=== PATIENT | female | born 1950 | race Caucasian/White ===

== ENCOUNTER 2016-07-30 21:09 | Emergency (ER) | payer OTHER ==
[2016-07-30] MEDS ORDERED: CEPHALEXIN 500 MG CAP PO ONE (22:21)
--- NOTE | 2016-07-30 22:31 | EDPHY ---
H & P Stated Complaint: perineal/suprapubic doris reddened and itching, sgy 07/19/16 HPI/ROS: Chief complaint: Possible surgical incisions site infection History of present illness: This is a 65-year-old female who presents to the emergency department concerned she has a possible surgical incisions site infection. Patient underwent extensive abdominal surgery 2 weeks ago for metastatic cancer. She has been doing well since the surgery. However over the last few days she has noticed increasing discomfort and redness around the lower surgical incisions site. Today she noted that her temperature increased to 99 F. She did contact her surgeon who recommended that she come to the ER for temperature reached 101 F. However she is concerned that she may begin infection presents. Review of systems: A 10 point review of systems was obtained and other than described above was negative - Personal History Current Tetanus/Diphtheria Vaccine: Unsure Current Tetanus Diphtheria and Acellular Pertussis (TDAP): Unsure - Medical/Surgical History Hx Asthma: No Hx Chronic Respiratory Disease: No Hx Diabetes: No Hx Cardiac Disease: No Hx Renal Disease: No Hx Cirrhosis: No Hx Alcoholism: No Hx HIV/AIDS: No Hx Splenectomy or Spleen Trauma: No Other PMH: COLON CANCER IN REMISSION 2002; scoliosis; major abdo sgy [ hysterectomy, oophorectomy, appy, diaphragm debulking, liver debulking, bowel resection & cholecystectomy] July 2016 - Social History Smoking Status: Never smoked - Physical Exam Exam: General Appearance: Alert and no distress. Eyes: Pupils equal and round no injection. Respiratory: Chest is non tender, lungs are clear to auscultation. Cardiac: regular rate and rhythm Gastrointestinal: Abdomen is soft and non tender, no masses, bowel sounds normal. Musculoskeletal: Neck is supple and non tender. Extremities have full range of motion and are non tender. Skin: Vertical midline incision to the abdomen. Doris in place. There is surrounding erythema to the lower incision site. Mild associated warmth and tenderness to palpation. No induration or fluctuance. No pustular discharge from the wound site. Constitutional: Initial Vital Signs Temperature (C) 37 C 07/30/16 21:10 Heart Rate 73 07/30/16 21:10 Respiratory Rate 16 07/30/16 21:10 Blood Pressure 130/87 H 07/30/16 21:10 O2 Sat (%) 93 07/30/16 21:10 O2 Delivery Mode Room Air Allergies/Adverse Reactions: Penicillins Allergy (Verified 05/06/09 20:08) Home Medications: Medication Instructions Recorded Cephalexin [Keflex] 500 mg PO QID 7 Days 07/30/16 GABAPENTIN 07/30/16 Tylenol 07/30/16 Medical Decision Making ED Course/Re-evaluation: Patient discussed with my secondary supervising physician Dr. Mitchell Briones. Patient presents to the emergency department concerned she is getting a surgical incision site infection. There is tenderness, erythema and warmth around the lower incision site. I have consulted with her surgeon, Dr. Titus. He recommends placing her on Keflex. He is comfortable with her following up on an outpatient basis. Patient does report a penicillin allergy but states she has had amoxicillin without problem before. She is therefore started on Keflex. She is given the 1st dose in the emergency room and tolerates it well. Home care is discussed. Return precautions are given. Patient voiced understanding and agreement with plan. Differential Diagnosis: Included but not limited to contact dermatitis, cellulitis, abscess - Data Points Medications Given: Discontinued Medications Cephalexin HCl (Keflex) 500 mg PO EDNOW ONE PRN Reason: Protocol Stop: 07/30/16 22:22 Last Admin: 07/30/16 22:27 Dose: 500 mg Departure - Departure Disposition: Home, Routine, Self-Care Clinical Impression: Wound infection Condition: Good Instructions: Wound Infection (ED) Additional Instructions: Follow-up with your surgeon next week for recheck If symptoms worsen or new symptoms develop return to the emergency room for recheck Referrals: Twin Pereira MD [Primary Care Provider] - As per Instructions Prescriptions: Cephalexin [Keflex] 500 mg PO QID 7 Days
[2016-07-30 23:08] VITALS: BP 127/71; PULSE 71; RESP 18; TEMP 98.4; O2SAT 97
== END 2016-07-30 23:07 | disposition home or self-care (01) ==
DX: T81.4XXA Infection following a procedure, initial encounter (principal); Z85.038 Personal history of other malignant neoplasm of large intestine; Z90.710 Acquired absence of both cervix and uterus; Y82.9 Unspecified medical devices associated with adverse incidents

== ENCOUNTER 2017-01-07 12:54 | Observation (INO) | payer OTHER, MEDICARE ==
[2017-01-07] MEDS ORDERED: ONDANSETRON 4 MG/2 ML VIAL IVP ONE (13:28)
[2017-01-07] MEDS ORDERED: ONDANSETRON 4 MG/2 ML VIAL ONE (13:34)
[2017-01-07 13:40] LABS: % IMMATURE GRANULYOCYTES 0.5 % (0.0-1.1); ABSOLUTE IMMATURE GRANULOCYTES 0.07 10^3/uL (0.00-0.10); ADD DIFF? NO; ADD MORPH? NO; ADD SCAN? NO; ATYPICAL LYMPHOCYTE FLAG 0 (0-99); FRAGMENT RBC FLAG 20 (0-99); HEMATOCRIT 34.3 % (38.0-47.0); HEMOGLOBIN 11.2 g/dL (12.6-16.3); LEFT SHIFT FLG 0 (0-99); LIPEMIA HEMOLYSIS FLAG 80 (0-99); MEAN CELL HEMOGLOBIN 26.2 pg (27.9-34.1); MEAN CELL HEMOGLOBIN CONCENTR. 32.7 g/dL (32.4-36.7); MEAN CELL VOLUME 80.3 fL (81.5-99.8); MEAN PLATELET VOLUME 10.5 fL (8.7-11.7); PLATELET CLUMPS FLAG 0 (0-99); PLATELET COUNT 348 10^3/uL (150-400); RED BLOOD CELL COUNT 4.27 10^6/uL (4.18-5.33)
[2017-01-07] MEDS ORDERED: IOPAMIDOL (ISOVUE-300) 100 ML BTL ONE (13:43)
[2017-01-07] MEDS ORDERED: POTASSIUM Cl (KCl) 100 ML IV ONE (14:16)
[2017-01-07] MEDS ORDERED: NS 1,000 ML IV ONE (14:29)
--- NOTE | 2017-01-07 14:29 | EDPHY ---
H & P Stated Complaint: r sided abd pain/nausea/diarrhea Source: Patient, RN/MD, Old records Exam Limitations: No limitations - Personal History Current Tetanus/Diphtheria Vaccine: Unsure - Medical/Surgical History Hx Asthma: No Hx Chronic Respiratory Disease: No Hx Diabetes: No Hx Cardiac Disease: No Hx Renal Disease: No Hx Cirrhosis: No Hx Alcoholism: No Hx HIV/AIDS: No Hx Splenectomy or Spleen Trauma: No Other PMH: COLON CANCER IN REMISSION 2002; scoliosis; major abdo sgy [ hysterectomy, oophorectomy, appy, diaphragm debulking, liver debulking, bowel resection & cholecystectomy] July 2016 - Social History Smoking Status: Never smoked Time Seen by Provider: 01/07/17 13:13 HPI/ROS: CHIEF COMPLAINT: abdominal pain HISTORY OF PRESENT ILLNESS: 66-year-old female presents emergency department sent by her primary care doctor's office for right lower quadrant abdominal pain and body aches that started this morning. Patient has a history of carcinoid tumor s/p surgery. She gets weekly injections of lanreotide, no history of chemotherapy or radiation. Pt had a major abdominal debulking surgery in July. Pt reports mild nausea, no vomiting. The patient reports two bowel movements this morning that were diarrhea which is normal for her, no blood. She reports her pain is in her right lower quadrant, sharp in nature with intermittent cramps that radiates to her right flank. She denies shortness of breath, no urinary frequency, urgency, dysuria or hematuria. Patient reports she had a normal day yesterday. She reports she was exposed to a gastroenteritis several days ago. REVIEW OF SYSTEMS: A comprehensive 10 point review of systems is otherwise negative aside from elements mentioned in the history of present illness. (Kaylin Solorzano) Constitutional: Initial Vital Signs Temperature (C) 36.9 C 01/07/17 13:06 Heart Rate 76 01/07/17 13:06 Respiratory Rate 18 01/07/17 13:06 Blood Pressure 118/77 01/07/17 13:06 O2 Sat (%) 98 01/07/17 13:06 O2 Delivery Mode Room Air O2 (L/minute) 2 Allergies/Adverse Reactions: Penicillins Allergy (Verified 01/07/17 13:05) Home Medications: Medication Instructions Recorded GABAPENTIN 07/30/16 Ondansetron Odt [Zofran Odt] 4 mg PO Q6-8PRN PRN #8 tab 01/07/17 Pancreatic Enzymes 01/07/17 Medical Decision Making - Diagnostics Imaging: I viewed and interpreted images myself - Diagnostics Imaging Results: Imaging Impressions Abdomen CT 01/07/17 13:41 Impression: 1. Enlarging right cardiophrenic lymph node/implants, suggesting worsening carcinomatosis. 2. Resolution/surgical resection of previously noted mesenteric implants. 3. New dominant hepatic hypodensity with additional indeterminate hypodensities , which could be related to treated metastases, however, are indeterminate, with several small lesions without a definite correlate on the previous study. 4. Mild intra- and extrahepatic biliary dilatation. 5. Additional findings as above. Findings discussed with Kaylin Solorzano NP, on 01/07/2017 at 1446 hours. ED Course/Re-evaluation: IV established, labs and istat obtained, CT abdomen pelvis with IV contrast ordered. Pt is given 4mg of zofran and 2 mg of morphine IV. Normal vital signs. 3pm-Pt reports her pain and nausea are much improved. She is nervous to be discharged home due to the amount of pain she was in. Plan to watch patient for 1-2 hours to see how she is feeling then dc home. 1600-Pt continues feeling better. She reports she feels hungry. She is requesting admission to the hospital over night as she is afraid to go home and be by herself if her pain returns. Dr. Siegel paged for admission. 1605-I spoke with Hiro PAYNE, he will admit the patient. (Kaylin Solorzano) - Data Points Laboratory Results: Laboratory Results 01/07/17 13:20 01/07/17 01/07/17 01/07/17 14:20 13:22 13:20 WBC RBC Hgb POC Hgb 13.3 gm/dL gm/dL (12.6-16.3) Hct POC Hct 39 % % (38-47) MCV MCH MCHC RDW Plt Count MPV Neut % (Auto) Lymph % (Auto) [place] % (Auto) Eos % (Auto) Baso % (Auto) Nucleat RBC Rel Count Absolute Neuts (auto) Absolute Lymphs (auto) Absolute Monos (auto) Absolute Eos (auto) Absolute Basos (auto) Absolute Nucleated RBC Immature Gran % Immature Gran # POC Sodium 142 mEq/L mEq/L (134-144) POC Potassium 3.2 mEq/L L mEq/L (3.3-5.0) POC Chloride 103 mEq/L mEq/L (97-110) POC BUN 13 mg/dL mg/dL (7-23) POC Creatinine 0.7 mg/dL mg/dL (0.6-1.0) POC Glucose 118 mg/dL H mg/dL (70-100) Total Bilirubin 1.5 mg/dL H mg/dL (0.1-1.4) Conjugated Bilirubin 0.4 mg/dL mg/dL (0.0-0.5) Unconjugated Bilirubin 1.1 mg/dL mg/dL (0.0-1.1) AST 25 IU/L IU/L (14-46) ALT 45 IU/L IU/L (9-52) Alkaline Phosphatase 93 IU/L IU/L (38-126) Total Protein 7.1 g/dL g/dL (6.3-8.2) Albumin 4.1 g/dL g/dL (3.5-5.0) Lipase 95 IU/L IU/L (23-300) Urine Color YELLOW Urine Appearance HAZY Urine pH 5.0 (5.0-7.5) Ur Specific [place] 1.024 (1.002-1.030) Urine Protein NEGATIVE (NEGATIVE) Urine Ketones NEGATIVE (NEGATIVE) Urine Blood 1+ H (NEGATIVE) Urine Nitrate NEGATIVE (NEGATIVE) Urine Bilirubin NEGATIVE (NEGATIVE) Urine Urobilinogen NEGATIVE EU EU (0.2-1.0) Ur Leukocyte Esterase NEGATIVE (NEGATIVE) Urine RBC 1-3 /hpf /hpf (0-3) Urine WBC 1-3 /hpf /hpf (0-3) Ur Epithelial Cells TRACE /lpf /lpf (NONE-1+) Calcium Oxalate Crystal 1+ /hpf /hpf (NONE-1+) Urine Mucus TRACE /lpf /lpf (NONE-1+) Urine Glucose NEGATIVE (NEGATIVE) 01/07/17 13:20 WBC 14.67 10^3/uL H 10^3/uL (3.80-9.50) RBC 4.27 10^6/uL 10^6/uL (4.18-5.33) Hgb 11.2 g/dL L g/dL (12.6-16.3) POC Hgb Hct 34.3 % L % (38.0-47.0) POC Hct MCV 80.3 fL L fL (81.5-99.8) MCH 26.2 pg L pg (27.9-34.1) MCHC 32.7 g/dL g/dL (32.4-36.7) RDW 18.0 % H % (11.5-15.2) Plt Count 348 10^3/uL 10^3/uL (150-400) MPV 10.5 fL fL (8.7-11.7) Neut % (Auto) 80.1 % H % (39.3-74.2) Lymph % (Auto) 14.7 % L % (15.0-45.0) [place] % (Auto) 3.2 % L % (4.5-13.0) Eos % (Auto) 1.2 % % (0.6-7.6) Baso % (Auto) 0.3 % % (0.3-1.7) Nucleat RBC Rel Count 0.0 % % (0.0-0.2) Absolute Neuts (auto) 11.76 10^3/uL H 10^3/uL (1.70-6.50) Absolute Lymphs (auto) 2.15 10^3/uL 10^3/uL (1.00-3.00) Absolute Monos (auto) 0.47 10^3/uL 10^3/uL (0.30-0.80) Absolute Eos (auto) 0.17 10^3/uL 10^3/uL (0.03-0.40) Absolute Basos (auto) 0.05 10^3/uL 10^3/uL (0.02-0.10) Absolute Nucleated RBC 0.00 10^3/uL 10^3/uL (0-0.01) Immature Gran % 0.5 % % (0.0-1.1) Immature Gran # 0.07 10^3/uL 10^3/uL (0.00-0.10) POC Sodium POC Potassium POC Chloride POC BUN POC Creatinine POC Glucose Total Bilirubin Conjugated Bilirubin Unconjugated Bilirubin AST ALT Alkaline Phosphatase Total Protein Albumin Lipase Urine Color Urine Appearance Urine pH Ur Specific [place] Urine Protein Urine Ketones Urine Blood Urine Nitrate Urine Bilirubin Urine Urobilinogen Ur Leukocyte Esterase Urine RBC Urine WBC Ur Epithelial Cells Calcium Oxalate Crystal Urine Mucus Urine Glucose Medications Given: Discontinued Medications Acetaminophen (Tylenol) 650 mg PO EDNOW ONE Stop: 01/07/17 15:11 Last Admin: 01/07/17 15:18 Dose: 650 mg Potassium Chloride (Potassium Cl 20 Meq (Premix)) 100 mls @ 50 mls/hr IV EDNOW ONE Stop: 01/07/17 16:15 Last Admin: 01/07/17 15:21 Dose: Not Given Sodium Chloride (Ns) 1,000 mls @ 0 mls/hr IV EDNOW ONE; Wide Open PRN Reason: Protocol Stop: 01/07/17 14:30 Last Admin: 01/07/17 15:04 Dose: 1,000 mls Morphine Sulfate (Morphine) 2 mg IVP EDNOW ONE Stop: 01/07/17 13:29 Last Admin: 01/07/17 13:31 Dose: 2 mg Morphine Sulfate (Morphine) 2 mg IVP EDNOW ONE Stop: 01/07/17 14:15 Last Admin: 01/07/17 14:27 Dose: 2 mg Ondansetron HCl (Zofran) 4 mg IVP EDNOW ONE Stop: 01/07/17 13:29 Last Admin: 01/07/17 13:28 Dose: 4 mg Potassium Chloride (Potassium Chloride Oral Liquid) 40 meq PO EDNOW ONE Stop: 01/07/17 15:11 Last Admin: 01/07/17 15:19 Dose: 40 meq Point of Care Test Results: 01/07/17 13:22 POC Sodium 142 POC Potassium 3.2 L POC Chloride 103 POC BUN 13 POC Creatinine 0.7 POC Glucose 118 H Departure - Departure Disposition: [facility] Acute Clinical Impression: Acute gastroenteritis Abdominal pain Qualifiers: Abdominal location: right lower quadrant Qualified Code(s): R10.31 - Right lower quadrant pain Condition: Good Additional Instructions: Referrals: Neville Siegel MD [Primary Care Provider] - As per Instructions Prescriptions: Ondansetron Odt [Zofran Odt] 4 mg PO Q6-8PRN PRN #8 tab PRN Reason: Nausea/Vomiting, Can'T Take Po
[2017-01-07 14:33] LABS: COLOR YELLOW; LEUKOCYTE ESTERASE,URINE NEGATIVE (NEGATIVE); NITRITE,URINE NEGATIVE (NEGATIVE)
[2017-01-07 14:39] LABS: MUCUS TRACE /lpf (NONE-1+)
[2017-01-07 14:50] LABS: ALBUMIN 4.1 g/dL (3.5-5.0); BILIRUBIN,TOTAL 1.5 mg/dL (0.1-1.4); BILIRUBIN-CONJUGATED 0.4 mg/dL (0.0-0.5); BILIRUBIN-UNCONJUGATED 1.1 mg/dL (0.0-1.1); TOTAL PROTEIN 7.1 g/dL (6.3-8.2)
[2017-01-07] MEDS ORDERED: POTASSIUM CL 20 MEQ/15 ML UDCUP PO ONE (15:10)
[2017-01-07] MEDS ORDERED: ACETAMINOPHEN 325 MG TAB PO ONE (15:10)
[2017-01-07] MEDS ORDERED: POTASSIUM CL 20 MEQ TAB ONE (15:17)
[2017-01-07] MEDS ORDERED: ONDANSETRON 4 MG/2 ML VIAL IVP PRN (17:30)
[2017-01-07] MEDS ORDERED: LORazepam 0.5 MG TAB PO PRN (17:30)
[2017-01-07] MEDS ORDERED: ONDANSETRON DISINTEGRATING 4 MG TAB PO PRN (17:30)
[2017-01-07] MEDS ORDERED: ACETAMINOPHEN 325 MG TAB PO PRN (17:30)
[2017-01-07] MEDS ORDERED: IBUPROFEN 200 MG TAB PO PRN (17:30)
[2017-01-07] MEDS ORDERED: D5W 1/2 NS W/ 20 KCl/L 1,000 ML IV SCH (17:30)
[2017-01-07] MEDS ORDERED: HYDROCODONE/APAP 5/325 TAB PO PRN (17:30)
[2017-01-07] MEDS ORDERED: PROMETHAZINE HCL 25 MG/ML INJ IVP PRN (17:30)
[2017-01-07] MEDS ORDERED: diphenhydrAMINE 25 MG CAP PO PRN (17:30)
[2017-01-07] MEDS ORDERED: LIPASE 24,000/AMYLASE/PROTEASE (CREON) 1 CAP PO PRN (17:35)
--- NOTE | 2017-01-07 18:09 | SOAPPROG ---
SOAP Progress Note Assessment/Plan: Assessment: Plan: 01/07/17 18:07 abd pain--RLQ, elevated WBC, no acute changes on CT. Prior surgical changes and carcinoid abnormalities comparing 01/01 CT to 01/02 CT. Will admit, IVF's, pain management, work on clearing moderate stool in colon. Subjective: RLQ pain is quite challenging. Morphine is helpful. No n/v. Appetite is ok. Aches perhaps better now Objective: Vital Signs Temp Pulse Resp BP Pulse Ox 36.9 C 63 18 104/61 96 01/07/17 17:20 01/07/17 17:20 01/07/17 17:20 01/07/17 17:20 01/07/17 17:20 01/06/17 01/07/17 01/08/17 05:59 05:59 05:59 Intake Total 1000 Balance 1000 Gen: less distressed compared to office visit HEENT: no acute changes, no nodes Lungs: CTAB Heart: RRR Abd+ bs soft, intermittently hyperactive BS, s/p prior large carcinoid debulking earlier this year. LE's no edema ICD10 Worksheet Patient Problems: Problems Problem Status Onset Abdominal pain Acute Acute gastroenteritis Acute
[2017-01-07] MEDS: LIPASE 24,000/AMYLASE/PROTEASE (CREON) 1 CAP PO SCH (18:42)
--- NOTE | 2017-01-07 19:48 | GHP ---
[f rep st] HISTORY AND PHYSICAL DATE OF ADMISSION: 01/07/2017 REASON FOR ADMISSION: Right lower quadrant pain/abdominal pain. HISTORY OF PRESENT ILLNESS: The patient is a 66-year-old female who has known underlying carcinoid c hallenges with previous large surgical debulking in spring of this year. She has had a slow, but pos itive recovery. She has had challenges with diarrhea and anemia, as well as some challenges with neftaly n management. She received her lanreotide shot on Tuesday, which she gets monthly through [facility]. She felt perhaps a little bit more sick from this injection that she typically d oes. She was quite busy with work on Tuesday, Tuesday and of this week. night i nto this morning, she had an increased sense of aches and chills, as well as an increased sense of di stention and discomfort in her stomach. She has had some paroxysms of stabbing pain in her right low er quadrant that triggered her visit to the office earlier today. She states she typically has diarr hea more consistently than anything else. She is taking antidiarrheal in the form of loperamide with most meals. She is on pancreatic enzymes to support better digestion. She states she gets serial C Ts every 3 months through [facility], although reported most recent exam is not cu rrently available. Given increasing pain and inability to manage pain in the outpatient setting, she was sent to the ER. CT was performed today which did not show any clearly specific acute findings. Postsurgical changes were noted. Some potential irregularities in the liver were noted consistent w ith her underlying carcinoid challenge. Her white count was elevated. She did respond to morphine. Was scared to go home. For this reason, she will be admitted for observation to see if supportive c are can get her more centered with pain control and overall sense of well being. 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 ALLERGIES: Penicillin, anaphylaxis. Intolerance to dairy. Allergies to grasses. Morphine is liste d as an allergy, although she tolerates this quite well in her current hospital setting. She is into lerant of Dilaudid. PAST SURGICAL HISTORY: Exploratory laparotomy for carcinoid tumor in 2002, large debulking more rece ntly, prior left shoulder surgery for torn labrum, surgical debulking from July 19, 2016, including g allbladder removal, omentectomy, total hysterectomy, biopsies of liver and bladder, appendectomy. FAMILY HISTORY: Father is . Mother had a stroke. Sister with diabetes. SOCIAL HISTORY: Lives independently. Has social support through friends. Does not smoke or drink. Has some challenges with long-term depression/anxiety. REVIEW OF SYSTEMS: GENERAL: Admits to chills, aches, more global soreness over the past day or two, although she has been battling more fatigue than usual over the past several days, if not week. She denies any acute headache. She is more light sensitive. No visual change. No sense of nasal fulln ess, sore throat, neck lymphadenopathy, or ear pain. She denies shortness of breath, cough, wheeze o r congestion. She denies chest pain or palpitations. On further questioning, she admits to some dis comfort when she takes a deep breath. This seems to be somewhat intermittent. Her shoulders are ilan ewhat sore, more so more recently. GI: No nausea, vomiting. She has been eating. Bowel pattern te nds to be more toward diarrhea as per HPI. No blood or mucus in her stool. Urinary symptoms are non e. No other skin rashes are noted aside from achiness. No acute musculoskeletal complaints. PHYSICAL EXAM: VITAL SIGNS: Temperature max 37.3, blood pressure between 104/61 and max blood press ure 125/72, heart rate 60s to 70s, respiratory rate 15 to 18, saturation 97% on 2 L. ER documentatio n shows 97% on room air as well. GENERAL: A pleasant, pale, uncomfortable female. SKIN: Warm, dry , intact. HEENT: Grossly unremarkable. Mild light sensitivity is noted. Oropharynx benign. NECK: Without masses. No lymphadenopathy. LUNGS: Clear breath sounds throughout. Dry cough. Some dis comfort with deep breath. HEART: Regular rate and rhythm without murmur, rub, or gallop. ABDOMEN: Positive, somewhat hyperactive bowel sounds intermittently. Soft right lower quadrant tenderness. No guarding, rebound, or masses. A well-healed midline incision is noted. BREASTS AND PELVIS: Defe rred. LOWER EXTREMITIES: Without edema. MUSCULOSKELETAL: No acute joint erythema, warmth, or swel ling. DATABASE: Blood work: Mild hypokalemia, potassium 3.2, creatinine 0.7, total bilirubin 1.5. Previo us mild elevation of liver functions has normalized. Pancreatic enzymes are normal. CBC: White cou nt is elevated at 14.7, hemoglobin 11.2, platelet count 348. There is a left shift. CT of abdomen a nd pelvis: No acute intraabdominal pathology to account for her symptoms, postsurgical changes, comp lillie appearing liver with multiple hypodensities, dilated common bile duct given prior cholecystectomy , enlarging pulmonary nodule in the right costophrenic angle at 1.8 x 0.8 cm (one year ago CT shows 1 .6 x 0.5). Prior compression fractures; none new. A moderate amount of soft stool in the bowel. ASSESSMENT: 1. Abdominal pain, aches, fever, chills. Consider viral illness versus some symptoms with constipat ion. Will admit. Will provide IV fluids, IV pain medications in the form of morphine, which has wor ked well in the ER setting. Will work on hopefully clearing some of the residual stool from the ramya l with MiraLAX. Will hold on antidiarrheals. Will increase diet as tolerated and adjust treatment p mandy based on symptoms. Will repeat blood work in the morning to see if white count improves. Repeat electrolytes at that point. 2. Carcinomatosis. She will need comparison with this current CT with her more recent one from [facility] for a better picture of stability of disease. 3. Enlarging pulmonary nodule. Will also check with [facility] regarding this is aimee. 4. Anxiety, depression, long-term history. She is somewhat resistant to the idea of starting from p harmacologic therapy. This has been discussed in the past, as well as today's visit. 5. Pain. She had been doing well with gabapentin for pain relief. This been tapered at some level recently. Will resume 300 mg nightly. This seems to be somewhat stabilizing for mood as well. /[id number]/MODL
[2017-01-07] MEDS: POLYETHYLENE GLYCOL 3350 17 GM PKT PO SCH (20:03)
[2017-01-07] MEDS ORDERED: GABAPENTIN 100 MG CAP PO SCH ×2 (21:00)
[2017-01-08 05:57] LABS: % IMMATURE GRANULYOCYTES 0.4 % (0.0-1.1); ABSOLUTE IMMATURE GRANULOCYTES 0.03 10^3/uL (0.00-0.10); ADD DIFF? NO; ADD MORPH? NO; ADD SCAN? NO; ATYPICAL LYMPHOCYTE FLAG 0 (0-99); FRAGMENT RBC FLAG 20 (0-99); HEMATOCRIT 28.4 % (38.0-47.0); HEMOGLOBIN 9.1 g/dL (12.6-16.3); LEFT SHIFT FLG 0 (0-99); LIPEMIA HEMOLYSIS FLAG 80 (0-99); MEAN CELL HEMOGLOBIN 25.9 pg (27.9-34.1); MEAN CELL VOLUME 80.9 fL (81.5-99.8); MEAN PLATELET VOLUME 10.4 fL (8.7-11.7); PLATELET CLUMPS FLAG 20 (0-99); PLATELET COUNT 257 10^3/uL (150-400); RED BLOOD CELL COUNT 3.51 10^6/uL (4.18-5.33)
[2017-01-08 06:09] LABS: ANION GAP 8 mEq/L (8-16); CALCIUM 8.3 mg/dL (8.5-10.4); CARBON DIOXIDE 25 mEq/l (22-31); CHLORIDE 105 mEq/L (97-110); CREATININE 0.7 mg/dL (0.6-1.0); GLOMERULAR FILTRATION RATE > 60; GLUCOSE 104 mg/dL (70-100); POTASSIUM 3.8 mEq/L (3.5-5.2); SODIUM 138 mEq/L (134-144)
[2017-01-08 06:17] LABS: % SATURATION 7 % (20-55); TOTAL IRON BINDING CAPACITY 324 ug/dL (260-490)
[2017-01-08 07:40] VITALS: RESP 16
[2017-01-08] MEDS: ENOXAPARIN 30 MG/0.3 ML SYR SC SCH ×2 (08:39→10:38)
[2017-01-08] MEDS: LIPASE 24,000/AMYLASE/PROTEASE (CREON) 1 CAP PO SCH ×2 (08:39→12:27)
[2017-01-08] MEDS: POLYETHYLENE GLYCOL 3350 17 GM PKT PO SCH (08:40)
[2017-01-08] MEDS ORDERED: FERROUS SULFATE 325 MG TAB PO SCH (09:00)
[2017-01-08] MEDS ORDERED: Herbals/Supplements -Info Only PO SCH (09:00)
[2017-01-08] MEDS ORDERED: MULTIVITAMINS 1 EACH TAB PO SCH (09:00)
[2017-01-08] MEDS ORDERED: SODIUM FERRIC GLUCONAT/SUCROSE 125 MG in NS 100 ML IV ONE (11:27)
--- NOTE | 2017-01-08 11:31 | SOAPPROG ---
SOAP Progress Note Assessment/Plan: Assessment: Plan: 01/07/17 18:07 abd pain--RLQ, elevated WBC, no acute changes on CT. Prior surgical changes and carcinoid abnormalities comparing 01/01 CT to 01/02 CT. Will admit, IVF's, pain management, work on clearing moderate stool in colon. 01/08/17 11:29 probable gastritis--improved. Prior surgery always makes one consider bowel obstruction. Distention has increased, but pain is less and she is having loose stool. Eating well. No n/v. Plan on d/c home this afternoon iron def anemia--will give dose of IV iron while patient is her with IV carcinoid--compare current CT with [facility] serial imaging. Subjective: Bhadra is feeling much better today. Appetite is good. Pain if far better. Last dose of morphine was last night. Belly is distended. Aches and chills have improved greatly. Objective: Vital Signs Temp Pulse Resp BP Pulse Ox 36.7 C 48 L 16 97/56 L 97 01/08/17 07:36 01/08/17 07:36 01/08/17 07:36 01/08/17 07:36 01/08/17 07:36 Laboratory Results 01/08/17 05:30 01/08/17 05:30 01/07/17 01/08/17 01/09/17 05:59 05:59 05:59 Intake Total 1000 Balance 1000 Gen: NAD, much brighter and more comfortable HEENT: puffiness below eyes Lungs: CTAB Heart: RRR Abd + bs, intermittently hyperactive. mild distention. TTP markedly reduced LE's no new edema WBC 14--> 7 BMP ok Iron low Hgb 9 ICD10 Worksheet Patient Problems: Problems Problem Status Onset Abdominal pain Acute Acute gastroenteritis Acute
[2017-01-08 11:43] VITALS: BP 99/68; PULSE 61; TEMP 97.2; O2SAT 93
--- NOTE | 2017-01-08 12:11 | GDS ---
[f rep st] DISCHARGE SUMMARY REASON FOR ADMISSION: Severe right lower quadrant pain. DISCHARGE DIAGNOSES: Severe right lower quadrant pain. HOSPITAL COURSE: Patient was admitted with acute right lower quadrant pain, along with fever, aches, chills, and some concern for bowel obstruction. The patient was admitted and given IV fluids. CT o f abdomen and pelvis showed some retained stool, although no convincing evidence of bowel obstruction . No other acute findings identified to be a clear cause of her symptoms. She was given IV fluids, pain meds, and continued on a regular diet. She was given MiraLAX to improve clearance of stool. Lyudmila blackwell had her last dose of morphine last night at around 6:00. She has not had further pain at a severe level since that time. She has been walking well without difficulty. She has been having some loose stools. She does have moderate distention, but in general feels much, much better. She has chronic iron deficiency. For this reason, she will be given a dose of IV iron prior to discharge home later today. Her home medications will be continued. She did recently reduce her gabapentin from 300 mg at h.s. to 200. Will resume 300 as this seems to fit her overall symptomatology better. Otherwise, will continue her current regimen of pancreatic enzymes. We will try to reduce her loperamide at ilan e level to hopefully avoid too much potential constipation/retained stool. She will have office foll owup with us next week, which we will need to compare her CT taken here with most recent CT done thro [facility] given her complex carcinoid disorder. /[id number]/MODL
== END 2017-01-08 13:32 | disposition home or self-care (01) ==
LOC: F3E 17:16
PROVIDERS: ADMIT Internal Medicine; ATTEND Internal Medicine
DX: R10.31 Right lower quadrant pain (principal); D64.9 Anemia, unspecified; R19.7 Diarrhea, unspecified; C80.0 Disseminated malignant neoplasm, unspecified; R59.0 Localized enlarged lymph nodes; R91.1 Solitary pulmonary nodule; R50.9 Fever, unspecified; E78.5 Hyperlipidemia, unspecified; F32.9 Major depressive disorder, single episode, unspecified; F41.9 Anxiety disorder, unspecified; Z85.038 Personal history of other malignant neoplasm of large intestine; Z82.3 Family history of stroke; Z88.0 Allergy status to penicillin; Z90.710 Acquired absence of both cervix and uterus; Z90.49 Acquired absence of other specified parts of digestive tract
CPT/HCPCS: 74177; G0378; J2405; J2916; Q9967; 82947-QW; 96374; J1650

== ENCOUNTER 2017-02-24 14:42 | Emergency (ER) | payer OTHER, MEDICARE ==
[2017-02-24 14:57] VITALS: RESP 16; O2SAT 98
--- NOTE | 2017-02-24 16:27 | EDPHY ---
H & P Stated Complaint: RLQ pain, intermittent since this morning, abd surgery in July, denies n/v Time Seen by Provider: 02/24/17 16:09 HPI/ROS: CHIEF COMPLAINT: Abdominal pain HISTORY OF PRESENT ILLNESS: The patient is a 66 y/o female arriving with her family complaining of recurrent intermittent right lower quadrant abdominal pain that has worsened throughout the day. 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 She was admitted in December for what she describes as "the exact same pain" as her symptoms today. She describes her pain as "pokey" and says it crescendos up throughout the day, but will go away completely. She has some associated pain in her right flank. She denies nausea, vomiting, or fever. She reports having diarrhea for the last 2 years and is continuing to have bowel movements today. She saw her PCP today for these symptoms and was referred to the ED for further evaluation. She notes she is in "Gabapentin withdrawal" since last week and has had swinging emotions related to this. REVIEW OF SYSTEMS: Constitutional: No fever, no chills Eyes: No visual changes ENT: No sore throat Respiratory: No cough, no shortness of breath Cardiac: No chest pain Gastrointestinal: No nausea, no vomiting, +abdominal pain Genitourinary: No hematuria, no dysuria Musculoskeletal: No leg pain or swelling Skin: No rash Neurological: No headache, no numbness, no weakness Psychiatric: No depression - Personal History Current Tetanus/Diphtheria Vaccine: Yes Current Tetanus Diphtheria and Acellular Pertussis (TDAP): Yes Tetanus Vaccine Date: 2016 - Medical/Surgical History PMH: PMH includes: 1. Carcinomatosis status post large debulking earlier this year including cholecystectomy, omentectomy, total hysterectomy, biopsies of liver and bladder , appendectomy 2. Hypercholesterolemia 3. Graves disease status post methimazole treatment 4. Osteopenia 5. Vitiligo 6. Closed head injury 1997 7. Left shoulder surgery for torn labrum 8. Anxiety/depression Prior medical records reviewed including admission 01/07/17 for abdominal pain. Hx Asthma: No Hx Chronic Respiratory Disease: No Hx Diabetes: No Hx Cardiac Disease: No Hx Renal Disease: No Hx Cirrhosis: No Hx Alcoholism: No Hx HIV/AIDS: No Hx Splenectomy or Spleen Trauma: No Other PMH: CARCINOID CANCER IN REMISSION 2002; scoliosis; major abdo sgy [ hysterectomy, oophorectomy, appy, diaphragm debulking, liver debulking, bowel resection & cholecystectomy] OMENTUM RESECTIONApril 2016 - Social History Smoking Status: Never smoked Additional Social History: Family at bedside. Lives independently. PCP: Dr. Siegel - Physical Exam Exam: General Appearance: Alert, tearful, no distress Eyes: Pupils equal and round, no conjunctival pallor or injection ENT, Mouth: Mucous membranes moist Neck: Normal inspection Respiratory: Lungs are clear to auscultation Cardiovascular: Regular rate and rhythm Gastrointestinal: Abdomen is soft with RLQ and epigastric tenderness, normal bowel sounds Neurological: A&O, nonfocal, normal gait Skin: Warm and dry, no rash Extremities: Nontender, no pedal edema Psychiatric: Mood and affect normal Constitutional: Initial Vital Signs Temperature (C) 36.5 C 02/24/17 14:45 Heart Rate 58 L 02/24/17 14:45 Respiratory Rate 16 02/24/17 14:45 Blood Pressure 131/78 H 02/24/17 14:45 O2 Sat (%) 98 02/24/17 14:45 O2 Delivery Mode Room Air Allergies/Adverse Reactions: Penicillins Allergy (Verified 01/07/17 13:05) Home Medications: Medication Instructions Recorded Ferrous Sulfate [Iron] 325 mg PO DAILY 01/07/17 Herbals/Supplements -Info Only 1 ea PO DAILY 01/07/17 Lipase 24,000/Amylase/Protease 1 cap PO TID PRN 01/07/17 [Creon 24 (*)] Lipase 24,000/Amylase/Protease 2 cap PO TIDMEAL 01/07/17 [Creon 24 (*)] Loperamide HCl [Imodium 2 mg (*)] 4 mg PO TIDMEAL PRN 01/07/17 Multivitamins [Multivitamin (*)] 1 each PO DAILY 01/07/17 Acetaminophen [Tylenol 325mg (*)] 650 mg PO Q4HRS PRN tab 01/08/17 Gabapentin [Neurontin 100 MG (*)] 300 mg PO HS cap 01/08/17 Ibuprofen [Motrin (*)] 400 mg PO Q4HRS PRN tab 01/08/17 Polyethylene Glycol 3350 [Miralax 17 gm PO BID pkt 01/08/17 17 gm (*)] Medical Decision Making - Diagnostics Imaging Results: Imaging Impressions Abdomen/Pelvis CT 02/24/17 16:31 Impression: No renal or ureteral stone, or hydronephrosis. Findings and recommendations discussed with Shannon Castanon at 1716 hour, 2016. Final report concurs with initial preliminary interpretation. Attention: This examination does not use radiographic contrast, and as such, provides only a limited evaluation of the abdomen, pelvis, and retroperitoneum. If there is further clinical suspicion for pathological conditions, a complete CT evaluation of the abdomen and pelvis utilizing intravenous, oral, and rectal contrast should be considered. Imaging: Discussed imaging studies w/ call center manager Radiologist, I viewed and interpreted images myself ED Course/Re-evaluation: This is a 66 y/o female who presents with a 1-day history of recurrent lower abdominal pain that feels the same as during her admission in December 2016. She has a history of carcinomatosis status post a large debulking in July 2016. She has RLQ and epigastric tenderness on exam and is afebrile here. Concern for SBO vs renal colic. Plan for IV, abdominal CT, and symptom management. 4mg IV Zofran and 4mg IV morphine administered. Abdominal CT does not show obvious cause for her symptoms. Reassessed patient and discussed these results. Abdominal exam remains unchanged. I offered admission for pain management and further work up, but she declined and would like to go home. She will receive a dose of Toradol here prior to discharge. She has a script for morphine available at home that she will use for pain as needed. She plans to follow up with her PCP and GI doc in the next few days. Return precautions discussed. Differential Diagnosis: Differential diagnosis includes though it is not limited to appendicitis, cholecystitis, diverticulitis, pyelonephritis, bowel perforation, small bowel obstruction. - Data Points Medications Given: Discontinued Medications Ketorolac Tromethamine (Toradol) 15 mg IVP EDNOW ONE Stop: 02/24/17 17:39 Last Admin: 02/24/17 17:57 Dose: 15 mg Morphine Sulfate (Morphine) 4 mg IVP EDNOW ONE Stop: 02/24/17 16:33 Last Admin: 02/24/17 16:52 Dose: 4 mg Ondansetron HCl (Zofran) 4 mg IVP EDNOW ONE Stop: 02/24/17 16:33 Last Admin: 11/09/17 16:53 Dose: 4 mg Departure - Departure Disposition: Home, Routine, Self-Care Clinical Impression: Abdominal pain Qualifiers: Abdominal location: epigastric Qualified Code(s): R10.13 - Epigastric pain Condition: Good Instructions: Abdominal Pain (ED) Additional Instructions: 1. Use your home pain medications as prescribed when needed for pain. 2. 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 I recommend calling first thing tomorrow morning to make an appointment. 3. Return to the ED for any worsening of condition. Referrals: Sherly Campbell MD [Primary Care Provider] - As per Instructions Report Scribed for: Shannon Castanon Report Scribed by: Daniella Mckenzie Date of Report: 02/24/17 Time of Report: 16:27 Physician Review and Approval Statement: 02/24/17 16:27 Portions of this note were transcribed by a medical management specialist. I personally performed a history, physical exam, medical decision making, and confirmed accuracy of information the transcribed note.
[2017-02-24] MEDS ORDERED: ONDANSETRON 4 MG/2 ML VIAL IVP ONE (16:32)
[2017-02-24] MEDS ORDERED: KETOROLAC 15 MG/1 ML SDV IVP ONE (17:38)
[2017-02-24 18:04] VITALS: BP 154/99; PULSE 53; TEMP 98.2
== END 2017-02-24 18:06 | disposition home or self-care (01) ==
DX: R10.13 Epigastric pain (principal); Z90.49 Acquired absence of other specified parts of digestive tract; Z90.710 Acquired absence of both cervix and uterus
CPT/HCPCS: 74176; 96374; 96375; 99285; J1885; J2405

== ENCOUNTER → 2017-12-27 | Outpatient (CLI) | payer OTHER, MEDICARE | LOC: FIMAGING 14:39 | PROVIDERS: ATTEND Internal Medicine | DX: Z12.31 Encounter for screening mammogram for malignant neoplasm of breast (principal) ==

== ENCOUNTER → 2018-05-19 | Outpatient (CLI) | payer OTHER, MEDICARE ==
[~2018-05-19] MED LIST: IOHEXOL 300 mgI/ML (OMNIPAQUE) 150 ML BTL IV ONE
== END ==
LOC: FIMAGING 15:21
DX: C7A.012 Malignant carcinoid tumor of the ileum (principal)
CPT/HCPCS: 74177; Q9967; 82565-PO

== ENCOUNTER → 2018-05-31 | Outpatient (CLI) | payer OTHER, MEDICARE | LOC: BHFA 10:45 | PROVIDERS: ATTEND Internal Medicine Cardiovascular Disease | DX: Z51.11 Encounter for antineoplastic chemotherapy (principal); C74.01 Malignant neoplasm of cortex of right adrenal gland ==

== ENCOUNTER 2018-07-04 19:40 | Emergency (ER) | payer OTHER, MEDICARE ==
[2018-07-04 19:53] VITALS: BP 134/88
--- NOTE | 2018-07-04 20:08 | EDPHY ---
H & P Time Seen by Provider: 07/04/18 19:52 HPI/ROS: CHIEF COMPLAINT: "I feel rashy on my anus" HISTORY OF PRESENT ILLNESS: 67-year-old female history of multiple abdominal surgeries, history of chronic diarrhea for 3 years post the surgeries, seen by gastroenterology recently diagnosed with anal fissures, in the ER complaining of irritation to her perianal region. She spoke with her primary care provider this evening because she had continued and felt "chills". She has not visualized her perianal region has had no pain with defecation. PHYSICAL EXAM (Prior to examination, patient consented to physical exam, hands were washed and my usual and customary physical exam procedures followed) 1) GENERAL: Well-developed, well-nourished, alert and oriented. Appears to be in no acute distress. 2) HEAD: Normocephalic 3) HEENT: sclera anicteric 4) LUNGS: Breathing comfortably. 5) RECTAL (with nurse Suzanna Beach at bedside): Skin tag at the 7 o'clock position. There is evidence of perianal irritation and fissures, however there is no evidence of perianal or perineal erythema, induration, fluctuance, no tenderness to palpation, no foul odor . No evidence of Karla's gangrene. Smoking Status: Never smoked Constitutional: Initial Vital Signs Temperature (C) 36.9 C 07/04/18 19:50 Heart Rate 77 07/04/18 19:50 Respiratory Rate 18 07/04/18 19:50 Blood Pressure 134/88 H 07/04/18 19:50 O2 Sat (%) 95 07/04/18 19:50 Allergies/Adverse Reactions: Penicillins Allergy (Verified 07/04/18 19:50) Home Medications: Medication Instructions Recorded Ferrous Sulfate [Iron] 325 mg PO DAILY 01/07/17 Herbals/Supplements -Info Only 1 ea PO DAILY 01/07/17 Lipase 24,000/Amylase/Protease 1 cap PO TID PRN 01/07/17 [Creon 24 (*)] Lipase 24,000/Amylase/Protease 2 cap PO TIDMEAL 01/07/17 [Creon 24 (*)] Loperamide HCl [Imodium 2 mg (*)] 4 mg PO TIDMEAL PRN 01/07/17 Multivitamins [Multivitamin (*)] 1 each PO DAILY 01/07/17 Acetaminophen [Tylenol 325mg (*)] 650 mg PO Q4HRS PRN tab 01/08/17 Gabapentin [Neurontin 100 MG (*)] 300 mg PO HS cap 01/08/17 Ibuprofen [Motrin (*)] 400 mg PO Q4HRS PRN tab 01/08/17 Polyethylene Glycol 3350 [Miralax 17 gm PO BID pkt 01/08/17 17 gm (*)] MDM/Departure - [facility] ED Course/Re-evaluation: Patient has no evidence of perianal abscess, doubt perirectal abscess, no evidence of perianal or perineal cellulitis. No evidence of thrombosed hemorrhoid. There is no indication at this time for hospitalization or diagnostic studies or initiation of antibiotic therapy. She is afebrile, appears well overall. I recommend continued therapy which she has been doing already including Sitz baths, topical cream. She is agreeable with plan and feels comfortable being discharged. Close follow-up in next 1-2 days with primary care provider - Depart Disposition: Home, Routine, Self-Care Clinical Impression: Anal fissure Condition: Good Instructions: Anal Fissure (ED) Referrals: Sherly Campbell MD [Primary Care Provider] - 1-2 days without fail
== END 2018-07-04 20:40 | disposition home or self-care (01) ==
DX: K60.2 Anal fissure, unspecified (principal); Z87.19 Personal history of other diseases of the digestive system